=== PATIENT | female | born 1995 | race Caucasian/White ===

== ENCOUNTER 2018-04-14 12:33 | Emergency (ER) | payer SELFPAY ==
[~2018-04-14] VITALS: Ht 157.5 cm; Wt 88.5 kg
[2018-04-14 12:44] VITALS: BP 129/72; PULSE 94; RESP 20; Ht 157.5 cm; Wt 88.5 kg
[2018-04-14] MEDS ORDERED: ONDANSETRON (ODT) 4 MG TAB ODT STA (14:09)
--- NOTE | 2018-04-14 14:13 | ERD ---
ER Documentation Chief Complaint Chief Complaint Complains of vomiting x 2 days HPI 22-year-old female, presents to the emergency department, complaining of 2 days with gastrointestinal symptoms including nausea, vomiting, mild, intermittent colicky abdominal pain and her usual migraine that started today. There is a possible suspicious food. No medications taken at this time. ROS All systems reviewed and are negative except as per history of present illness. Medications Home Meds Active Scripts Ibuprofen* (Motrin*) 400 Mg Tab, 400 MG PO Q8, #12 TAB Prov:ARIES MARQUEZ MD 04/14/18 Acetaminophen* (Tylenol*) 325 Mg Tablet, 2 TAB PO Q8 PRN for PAIN AND OR ELEVATED TEMP, #20 TAB Prov:ARIES MARQUEZ MD 04/14/18 Ondansetron Hcl* (Zofran*) 4 Mg Tablet, 4 MG PO Q8H PRN for NAUSEA AND/OR VOMITING, #12 TAB Prov:ARIES MARQUEZ MD 04/14/18 Allergies Allergies: Coded Allergies: amoxicillin (Verified Allergy, Unknown, 04/14/18) Uncoded Allergies: PENICILLIN (Allergy, Unknown, 04/14/18) Physical Exam Vitals Vital Signs Date Temp Pulse Resp B/P (MAP) Pulse Ox O2 O2 Flow FiO2 Time Delivery Rate 04/14/18 98.7 94 20 129/72 99 12:44 (91) Physical Exam Const: No acute distress Head: Atraumatic Eyes: Normal Conjunctiva ENT: Normal External Ears, Nose and Mouth. Neck: Full range of motion. No meningismus. Resp: Clear to auscultation bilaterally Cardio: Regular rate and rhythm, no murmurs Abd: Soft, non tender, non distended. Normal bowel sounds Skin: No petechiae or rashes Back: No midline or flank tenderness Ext: No cyanosis, or edema Neur: Awake and alert Psych: Normal Mood and Affect Result Diagram: 04/14/18 1425 04/14/18 1425 Results 24 hrs Laboratory Tests Test 04/14/18 14:00 04/14/18 14:21 04/14/18 14:25 Urine Color YELLOW Urine Clarity SLIGHTLY CLOUDY Urine pH 6.0 Urine Specific [place] 1.028 Urine Ketones NEGATIVE mg/dL Urine Nitrite NEGATIVE mg/dL Urine Bilirubin NEGATIVE mg/dL Urine Urobilinogen 2+ mg/dL Urine Leukocyte Esterase NEGATIVE [place]/ul Urine Microscopic RBC 2 /HPF Urine Microscopic WBC 1 /HPF Urine Squamous Epithelial Cells FEW /HPF Urine Hemoglobin NEGATIVE mg/dL Urine Glucose NEGATIVE mg/dL Urine Total Protein 1+ mg/dl POC Beta HCG, Qualitative NEGATIVE White Blood Count 6.7 10^3/ul Red Blood Count 4.23 10^6/ul Hemoglobin 12.2 g/dl Hematocrit 38.2 % Mean Corpuscular Volume 90.3 fl Mean Corpuscular Hemoglobin 28.8 pg Mean Corpuscular 31.9 g/dl Hemoglobin Concent Red Cell Distribution Width 11.6 % Platelet Count 279 10^3/UL Mean Platelet Volume 8.7 fl Immature Granulocytes % 0.100 % Neutrophils % 77.2 % Lymphocytes % 14.7 % Monocytes % 6.6 % Eosinophils % 1.3 % Basophils % 0.1 % Nucleated Red Blood Cells % 0.0 /100WBC Immature Granulocytes # 0.010 10^3/ul Neutrophils # 5.2 10^3/ul Lymphocytes # 1.0 10^3/ul Monocytes # 0.4 10^3/ul Eosinophils # 0.1 10^3/ul Basophils # 0.0 10^3/ul Nucleated Red Blood Cells # 0.0 10^3/ul Sodium Level 140 mmol/L Potassium Level 3.8 mmol/L Chloride Level 102 mmol/L Carbon Dioxide Level 29 mmol/L Anion Gap 9 Blood Urea Nitrogen 9 mg/dl Creatinine 0.66 mg/dl Est Glomerular Filtrat > 60 mL/min Rate mL/min Glucose Level 99 mg/dl Calcium Level 8.9 mg/dl Total Bilirubin 0.5 mg/dl Direct Bilirubin 0.00 mg/dl Indirect Bilirubin 0.5 mg/dl Aspartate Amino Transf (AST/SGOT) 20 IU/L Alanine 33 IU/L Aminotransferase (ALT/SGPT) Alkaline Phosphatase 47 IU/L Total Protein 7.0 g/dl Albumin 3.9 g/dl Globulin 3.10 g/dl Albumin/Globulin Ratio 1.25 Lipase 21 U/L Current Medications Medications Dose Sig/Brenda Start Time Status Last (Trade) Ordered Route PRN Stop Time Admin Dose Reason Admin 650 mg ONCE ONCE 04/14/18 DC 04/14/18 Acetaminophen PO 14:30 04/14/18 14:32 (Tylenol 14:31 Tab) Ondansetron 8 mg ONCE STAT 04/14/18 DC 04/14/18 HCl (Zofran ODT 14:09 04/14/18 14:32 Odt) 14:27 Procedures/MDM Physical exam unremarkable, patient in no distress, hydrated, adequate oral intake, abdomen, soft, nontender, no peritoneal signs. Differential diagnosis include but not limited to: gastrointestinal infection bacterial/viral, UTI, appendicitis, colitis, food poisoning, food intolerance. Low suspicion for acute abdomen Physical examination and clinical presentation consistent most likely with viral gastroenteritis. During the ED course the patient remained stable, overall improvement of the symptoms after receiving treatment in the emergency department with Zofran and Tylenol. Clinical impression discussed with the patient who agrees with management. The patient is stable to be discharged home, Some side effects of prescribed medications (headache, rash, nausea, vomiting, diarrhea, interactions with other medications) were reviewed. The patient requires a follow up with the primary care provider in the next 48h. If symptoms persist, worsen or new symptoms develop, then patient should return to the ED immediately. Disclaimer: Inadvertent spelling and grammatical errors are likely due to EHR/dictation software use and do not reflect on the overall quality of patient care. Also, please note that the electronic time recorded on this note does not necessarily reflect the actual time of the patient encounter. Departure Diagnosis: Primary Impression: Nausea and vomiting Additional Impression: Migraine Condition: Stable Additional Instructions: Thank you very much for allowing us to participate in your care. Your health and safety is our top priority at [facility]. Call your primary care doctor TOMORROW for an appointment during the next 2-4 days and bring all the information and medications prescribed. Have prescriptions filled and follow precisely the directions on the label. If the symptoms get worse and your provider is unavailable, return to the Emergency Department immediately. ARIES MARQUEZ MD Apr 14, 2018 14:13
[2018-04-14] MEDS ORDERED: ACETAMINOPHEN 325 MG TAB PO ONE (14:30)
[2018-04-14] MEDS ORDERED: ONDA4TAB8 PO (15:45)
[2018-04-14] MEDS ORDERED: IBUP-1561 PO (15:45)
[2018-04-14] MEDS ORDERED: ACET325T33 PO (15:45)
== END 2018-04-14 16:09 | disposition home or self-care (01) ==
LOC: FTE 12:33
DX: G43.909 Migraine, unspecified, not intractable, without status migrainosus (principal)
CPT/HCPCS: 80053; 81001; 81025; 83690; 85025; 99283